=== PATIENT | female | born 1975 | race Caucasian/White ===

== ENCOUNTER → 2017-03-16 | Outpatient (CLI) | payer BC | LOC: RAD 13:26 | PROVIDERS: ATTEND Family Medicine | DX: Z12.31 Encounter for screening mammogram for malignant neoplasm of breast (principal) | CPT/HCPCS: 77067 ==

== ENCOUNTER → 2018-05-03 | Outpatient (CLI) | payer BC ==
--- NOTE | 2018-05-03 17:35 | Diagnostic Imaging Report ---
INDICATION: Routine screening. Comparison is made with prior exam from 03/16/2017. 2-D and 3-D bilateral screening mammography was performed. The current study was also evaluated with a Computer Aided Detection (CAD) system. FINDINGS: Both breasts remain heterogeneously dense, limiting the sensitivity of mammography. The parenchymal pattern is stable. No dominant mass or malignant-appearing microcalcifications are seen. The axillae are unremarkable. IMPRESSION: No mammographic features suspicious for malignancy are identified. ACR BI-RADS Category 1: Negative. Result letter will be mailed to the patient. Note: At least 10% of breast cancer is not imaged by mammography. Dictated by: Dictated on workstation # [id number]
== END ==
LOC: RAD 13:00
PROVIDERS: ATTEND Obstetrics & Gynecology
DX: Z12.31 Encounter for screening mammogram for malignant neoplasm of breast (principal)
CPT/HCPCS: 77067

== ENCOUNTER → 2019-07-09 | Outpatient (CLI) | payer BC ==
--- NOTE | 2019-07-09 09:28 | Diagnostic Imaging Report ---
INDICATION: Routine screening. COMPARISON: 05/03/2018 and 03/16/2017. TECHNIQUE: 2D and 3D bilateral screening mammography was performed with CAD. FINDINGS: Both breasts are heterogeneously dense, limiting the sensitivity of mammography. The parenchymal pattern is stable. No mass or malignant appearing microcalcifications are seen. The axillae are unremarkable. IMPRESSION: No mammographic features suspicious for malignancy are identified. ACR BI-RADS Category 1: Negative. Result letter will be mailed to the patient. Note: At least 10% of breast cancer is not imaged by mammography. Dictated by: Dictated on workstation # [id number]
== END ==
LOC: RAD 07:32
PROVIDERS: ATTEND Obstetrics & Gynecology
DX: Z12.31 Encounter for screening mammogram for malignant neoplasm of breast (principal)
CPT/HCPCS: 77067

== ENCOUNTER → 2020-08-04 | Outpatient (CLI) | payer BC ==
--- NOTE | 2020-08-04 10:21 | Diagnostic Imaging Report ---
INDICATION: Routine screening. COMPARISON: 07/09/2019 and 05/03/2018. TECHNIQUE: 2D and 3D bilateral screening mammography was performed with CAD. FINDINGS: Both breasts are heterogeneously dense, limiting the sensitivity of mammography. The parenchymal pattern is stable. No mass or malignant appearing microcalcifications are seen. The axillae are unremarkable. IMPRESSION: No mammographic features suspicious for malignancy are identified. ACR BI-RADS Category 1: Negative. Result letter will be mailed to the patient. Note: At least 10% of breast cancer is not imaged by mammography. Dictated by: Dictated on workstation # [id number]
== END ==
LOC: RAD 07:45
PROVIDERS: ATTEND Obstetrics & Gynecology
DX: Z12.31 Encounter for screening mammogram for malignant neoplasm of breast (principal)
CPT/HCPCS: 77063; 77067

== ENCOUNTER 2021-04-13 05:34 | Outpatient (CLI) | payer BC ==
[~2021-04-13] VITALS: Ht 165.1 cm; Wt 77.3 kg
[2021-04-14] MEDS ORDERED: NORG1TAB14 PO (13:35)
== END 2021-04-14 13:41 | disposition home or self-care (01) ==
LOC: PREOP 05:34
PROVIDERS: ATTEND Obstetrics & Gynecology
DX: Z01.818 Encounter for other preprocedural examination (principal)

== ENCOUNTER 2021-04-20 11:32 | Day surgery (SDC) | payer BC ==
[2021-04-20] VITALS (9 sets, daily range): BP systolic 104–142; BP diastolic 67–84
[~2021-04-20] VITALS: Ht 165 cm; Wt 77.3 kg
--- NOTE | 2021-04-20 08:30 | Progress Note-Post Operative ---
Post-Operative Progess Note Surgeon (s)/Assistant Grocery (s) Surgeon MADELINE ALVA MD Assistant Grocery: r Pre-Operative Diagnosis GUMARO-3 and pigmented L labia minora lesions Post-Operative Diagnosis Same with pathology pending Procedure & Operative Findings Date of Procedure 04/20/21 Procedure Performed/Findings TLH with bilateral salpingectomies and biopsy L labia minora Anesthesia Type GETA Estimated Blood Loss Estimated blood loss (mL): min Specimens/Packing Specimens Removed Uterus and fallopian tubes and Biopsy of left labia minora MADELINE ALVA MD Apr 20, 2021 08:30
--- NOTE | 2021-04-20 08:30 | Progress Note-Pre Operative ---
Pre-Operative Progress Note H&P Reviewed The H&P was reviewed, patient examined and no changes noted. Date Seen by Provider: Apr 20, 2021 Time Seen by Provider: 13:00 Date H&P Reviewed: Apr 20, 2021 Time H&P Reviewed: 13:00 Pre-Operative Diagnosis: GUMARO-3 MADELINE ALVA MD Apr 20, 2021 08:30
--- NOTE | 2021-04-20 08:35 | Discharge Inst-Surgical ---
Discharge Inst-Surgical Depart Medication/Instructions New, Converted or Re-Newed RX: Transmitted to Pharmacy Consults/Follow Up Patient Instructions: As directed Orders & Referrals Follow Up Appt: Return to clinic on Sunday, April 22, 2021 at 9:30 AM for staple removal Call to make follow up appt. for patient in 4 weeks. Activity: Rest for 24 hours, than as tolerated. Wound Care: May remove Band-Aid tomorrow. Replace as desired. Keep incisions clean and dry. Wash daily with soap and water. Diet: As tolerated may shower or tub bathe as desired. No driving for 24 hours, no alcoholic beverages for 24 hours, and nothing per vagina (no tampons, douching, or intercourse) for 8 weeks. Patient to return to the clinic as soon as possible for: Temperature greater than 101F, Severe Pain, Foul discharge from incision or vagina, Excessive Bleeding (more than a period). Activity Activity as Tolerated: No Diet Discharge Diet: No Restrictions MADELINE ALVA MD Apr 20, 2021 08:35
[~2021-04-20 11:32] MED LIST: DOCU-143 PO; IBUP-1780 PO; NORG1TAB14 PO; OXYC1TAB87 PO
[2021-04-20] MEDS ORDERED: LIDOCAINE/EPI 1%-1:100,000 (XYLOCAINE) 20ML ONE (11:36)
[2021-04-20] MEDS ORDERED: ONDANSETRON 4 MG/2 ML (SDV) Z0FRAN IVP PRN ×2 (11:45→15:15)
[2021-04-20] MEDS ORDERED: KETOROLAC 30 MG/ML VIAL IVP SCH (11:45)
[2021-04-20] MEDS ORDERED: ceFAZolin INJECTION 1,000 MG in WATER (STERILE) FOR INJECTION 10 ML IV ONE (11:45)
[2021-04-20] MEDS: D5 LR IV SOLUTION 1,000 ML IV SCH ×2 (11:45→17:42)
[2021-04-20] MEDS ORDERED: fentaNYL INJ 100 MCG/2 ML AMP IVP PRN (11:45)
[2021-04-20] MEDS ORDERED: oxyCODONE/APAP 5/325MG (PERCOCET 5) TABLET PO PRN (11:45)
[2021-04-20] MEDS ORDERED: IBUPROFEN 800 MG (MOTRIN) TAB PO SCH (12:00)
[2021-04-20] MEDS ORDERED: LIDOCAINE PF 2% 5 ML (XYLOCAINE) VIAL ONE (12:13)
[2021-04-20] MEDS ORDERED: ONDANSETRON 4 MG/2 ML (SDV) Z0FRAN ONE (12:13)
[2021-04-20] MEDS ORDERED: proPOfol 200 MG/20 ML (DIPRIVAN) VIAL IV ONE (12:13)
[2021-04-20] MEDS ORDERED: GLYCOPYRROLATE 0.2 MG/ML (ROBINUL) 2 ML VIAL ONE (12:13)
[2021-04-20] MEDS ORDERED: MIDAZOLAM 2 MG/2 ML (VERSED) VIAL ONE (12:13)
[2021-04-20] MEDS ORDERED: fentaNYL INJ 100 MCG/2 ML AMP ONE (12:13)
[2021-04-20] MEDS ORDERED: NEOSTIGMINE 3 MG/3 ML VIAL ONE (12:13)
[2021-04-20] MEDS ORDERED: ROCURONIUM 10 MG/ML 5 ML SYRINGE IV ONE (12:13)
[2021-04-20] MEDS: LACTATED RINGERS 1,000 ML IV PRN ×2 (12:16→14:10)
[2021-04-20 12:29] LABS: BASOPHILS # (AUTO) 0.1 10^3/uL (0.0-0.1); BASOPHILS % (AUTO) 1 % (0-10); EOSINOPHILS # (AUTO) 0.2 10^3/uL (0.0-0.3); EOSINOPHILS % (AUTO) 3 % (0-10); HEMATOCRIT 40 % (35-52); LYMPHOCYTES # (AUTO) 2.1 10^3/uL (1.0-4.0); LYMPHOCYTES % (AUTO) 34 % (12-44); MEAN CORPUSCULAR HEMOGLOBIN 31 pg (25-34); MEAN CORPUSCULAR HGB CONC 33 g/dL (32-36); MEAN CORPUSCULAR VOLUME 96 fL (80-99); MEAN PLATELET VOLUME 9.5 fL (9.0-12.2); MONOCYTES # (AUTO) 0.4 10^3/uL (0.0-1.0); MONOCYTES % (AUTO) 6 % (0-12); NEUTROPHILS # (AUTO) 3.5 10^3/uL (1.8-7.8); NEUTROPHILS % (AUTO) 56 % (42-75); PLATELET COUNT 308 10^3/uL (130-400); WHITE BLOOD COUNT 6.2 10^3/uL (4.3-11.0)
[2021-04-20] MEDS ORDERED: HYDROcodone/APAP 5 MG/325 MG (LORTAB) TAB PO ONE (13:00)
[2021-04-20] MEDS ORDERED: SEVOFLURANE (ULTANE) 15 ML INHAL SOLN ONE (14:55)
[2021-04-20] MEDS ORDERED: KETOROLAC 30 MG/ML VIAL ONE (15:06)
[2021-04-20] MEDS ORDERED: HYDROmorphone 2 MG/ML VIAL (DILAUDID) ONE (15:07)
[2021-04-20] MEDS ORDERED: fentaNYL INJ 100 MCG/2 ML AMP IVP ONE (15:15)
[2021-04-20] MEDS ORDERED: HYDROmorphone 2 MG/ML VIAL (DILAUDID) IV ONE (15:15)
--- NOTE | 2021-04-20 19:55 | OPERATIVE REPORT ---
DATE OF SERVICE: 04/20/2021 PREOPERATIVE DIAGNOSES: Severe cervical dysplasia, labial pigmented lesion. POSTOPERATIVE DIAGNOSES: Severe cervical dysplasia, labial pigmented lesion with pathology pending. OPERATIVE PROCEDURE: Biopsy of labial pigmented lesion on the left labia minora as well as total laparoscopic hysterectomy with bilateral salpingo-oophorectomy and intraoperative general surgery consult. OPERATIVE DESCRIPTION: With the patient in the supine position under satisfactory general anesthesia, she was repositioned in dorsal lithotomy position in the [facility] and then prepped and draped in the usual fashion for abdominal and vaginal surgery. The patient had darkly pigmented irregular lesions on the inferior left labia minora and on the superior and inferior left labia minora. Two public relations representative biopsies were taken from these lesions, which were probably in the range of 2.5 to 3 cm in diameter. Those biopsies were sent to pathology as a left labia minora pigmented lesion biopsy. A weighted speculum then placed in posterior fornix of vagina, cervix exposed and grasped anteriorly with single tooth tenaculum. Uterus was sounded to 9.5 cm with uterine sound. The cervix was then serially dilated with Ezra dilators to accommodate a Jazmin II manipulator, which was placed using a 6 mm x 8 cm uterine probe and a 30 mm colpotomy ring. Sutures of #1 Vicryl placed at 3 and 9 o'clock position of the cervix affix the uterus to the manipulator. The patient was brought in low dorsal lithotomy position after Medley catheter was placed in the urinary bladder and the tenaculum and speculum were removed from the vagina. A 12 mm incision was made in the patient's midline 10 cm superior to the umbilicus, Veress needle was placed through that incision, but was unsuccessful and placed in the abdominal cavity. The Veress needle was then placed through a stab wound at the superior margin of the umbilicus. Correct placement confirmed with a drop test and the abdomen was insufflated with 2.4 liters of carbon dioxide. An attempt was made to place a 12 mm port through the midline incision that was unsuccessful, so a 5 mm Optiview laparoscopic port was placed in the patient's left upper quadrant, allowing access to the peritoneal cavity and then under direct vision, ports of 12 mm and 8 mm were placed through the midline incision and into the right and left lateral 8 mm incisions as well. All 4 port sites were infiltrated with 1% lidocaine with epinephrine prior to incision. The patient was now placed in Trendelenburg allowing the bowel spill out of the pelvis. The da Soha column was advanced on the patient and docked and operative instrument placed in right and left lateral ports and I retired to the da Soha console. At the console using the vessel sealer on the right and a bipolar fenestrated grasper on the left, the pelvis was first examined. The ovaries appeared normal as did the uterus and fallopian tubes. Both ureters were seemed to peristalse and were well away from the IP ligament. Laparoscope was rotated. The appendix was identified. It was a normal vermiform appendix at the terminus of the right pericolic gutter. The laparoscopic scope was brought back to the pelvis. There were some adhesions of the sigmoid to the left pelvic brim. These were taken down bluntly and sharply and with cautery to free the sigmoid and allow full access to the left IP ligament. The right tube and ovary were then elevated using the vessel sealer, the IP ligament was clamped, cauterized and divided stepwise across the mesovarium, across the round ligament, across the broad ligament and down onto the cardinal ligament. Same procedure performed on the left, thus allowing for removal of both tubes and ovaries eventually with the uterus. Anterior lower uterine segment peritoneum was exposed and divided with bipolar fenestrated graspers just superior to her incision. Peritoneal scarring and then the bladder was carefully dissected down off the lower uterine segment, exposing the anterior wall of the vagina over the colpotomy ring. Colpotomy incision was made at 12 o'clock position onto the colpotomy ring. That incision was continued circumferentially until the entire colpotomy ring was exposed and then the uterus with tubes and ovaries still attached was extracted through the vagina. Vaginal cuff was closed with a running suture of V-Loc barbed suture starting from the right angle and continuing across the vaginal cuff. The left angle and then coming back to the midportion and reapproximated the bladder peritoneum with the last couple of stitches. Care was taken to ensure inclusion of the uterine vessel pedicles in the process of securing the angles of the vagina. The pelvis was examined for hemostasis, which was complete. Both ureters were seemed to peristalse before the procedure and throughout the procedure and again at this point. The laparoscope was rotated upright and examined. There was a small lesion on the medial portion of the liver just beside where the ligamentum teres entered under the liver. Dr. Chiang was asked to examine this area. He graciously came to the operating room and looked at it and felt like this represented a small benign liver cyst. He felt that no further workup or followup was warranted. However, if desired eventually a CT could be used to reevaluate that area and we will discuss that with the patient later. With the procedure terminated, the operative instruments were removed under direct vision as were the ports. The abdomen was evacuated of insufflating gas in the process of removing the ports. The skin incisions were closed with sharda after closing the fascia at the supraumbilical incision with [id number] suture of 2-0 Vicryl. Speculum was now replaced in the vagina. Vaginal cuff examined and found completely reapproximated and completely hemostatic. Sponge and needle counts were correct on completion of procedure. Blood loss was minimal. The patient tolerated the procedure well and was uneventfully awakened from general anesthesia and transferred to recovery room in stable condition. Job ID: [id number] DocumentID: [id number] Dictated Date: 04/20/2021 14:50:08 Telephone Operator Chief Date: 04/20/2021 19:55:27 Dictated By: MADELINE ALVA MD
[2021-04-20] MEDS: KETOROLAC 30 MG/ML VIAL IVP SCH (21:23)
[2021-04-20] MEDS: DOCUSATE SODIUM 100 MG (COLACE) CAP PO SCH (21:23)
[2021-04-21 00:43] VITALS: BP 127/78
[2021-04-21 03:16] VITALS: BP 121/80
[2021-04-21 03:36] VITALS: BP 115/61
[2021-04-21] MEDS: KETOROLAC 30 MG/ML VIAL IVP SCH (03:37)
[2021-04-21] MEDS: D5 LR IV SOLUTION 1,000 ML IV SCH (03:37)
[2021-04-21 08:00] VITALS: BP 133/62
[2021-04-21] MEDS ORDERED: IBUPROFEN 800 MG (MOTRIN) TAB PO ONE (08:21)
--- NOTE | 2021-04-21 08:30 | Progress Note ---
Standard Progress Note Progress Notes/Assess & Plan Date Seen by a Provider: Apr 21, 2021 Time Seen by a Provider: 08:29 Progress/Assessment & Plan This patient is without complaint. She is ambulating, voiding, tolerating oral intake well has good pain control. Vital Signs Date Time Temp Pulse Resp B/P (MAP) Pulse Ox O2 Delivery O2 Flow Rate FiO2 04/21/21 03:36 36.6 82 14 115/61 (79) 96 Room Air 04/21/21 00:43 37.0 92 14 127/78 (94) 97 Room Air 04/20/21 21:23 36.8 82 14 131/67 (88) 98 Room Air 04/20/21 18:00 98 Room Air 04/20/21 16:10 36.2 63 14 142/73 (96) 100 Room Air 04/20/21 15:50 Nasal Cannula 2 04/20/21 15:40 36.1 14 133/81 (98) 100 Nasal Cannula 2 04/20/21 15:30 16 135/84 (101) 100 Nasal Cannula 2 04/20/21 15:20 OxyMask 10 04/20/21 15:20 14 123/78 (93) 100 OxyMask 10 04/20/21 15:10 14 131/76 (94) 100 OxyMask 10 04/20/21 15:00 16 104/70 (81) 99 OxyMask 10 04/20/21 14:56 36.6 14 116/73 (87) 100 OxyMask 10 04/20/21 14:56 OxyMask 10 04/20/21 11:40 36.3 87 16 135/76 (95) 98 Room Air I & O 04/21/21 07:00 Intake Total 3110 ml Output Total 1950 ml Balance 1160 ml Vital signs are stable. Patient is afebrile. The abdomen is benign. The surgical incision dressings are clean and dry Extremities show no clubbing or cyanosis. There is no Homans' sign. Assessment and plan Postoperative day #1 doing well. Plan is for discharge home with follow-up in clinic Final Diagnosis GUMARO-3 MADELINE ALVA MD Apr 21, 2021 08:30
[2021-04-21] MEDS ORDERED: DOCUSATE SODIUM 100 MG (COLACE) CAP PO SCH (09:00)
[2021-04-21] MEDS: DOCUSATE SODIUM 100 MG (COLACE) CAP PO SCH (09:03)
[2021-04-21 09:15] VITALS: BP 133/62
[2021-04-21] MEDS ORDERED: IBUPROFEN 800 MG (MOTRIN) TAB PO SCH (15:00)
--- NOTE | 2021-04-22 10:10 | Anesthesia-General Post-Op ---
General Post Op Complications Complications None Follow Up Care/Instructions Patient Instructions None needed. Anesthesia/Patient Condition Patient Condition Chart reviewed, no complaints noted, no apparent adverse anesthesia problems. . CHERY,SLY Lares CRNA Apr 22, 2021 10:10
== END 2021-04-21 09:15 | disposition home or self-care (01) ==
LOC: SDC 11:32 → WS 16:24 → SDC 04-21 09:15
PROVIDERS: ATTEND Obstetrics & Gynecology
DX: N87.1 Moderate cervical dysplasia (principal); L91.8 Other hypertrophic disorders of the skin; N83.291 Other ovarian cyst, right side; N83.8 Other noninflammatory disorders of ovary, fallopian tube and broad ligament; Z79.899 Other long term (current) drug therapy; Z98.890 Other specified postprocedural states
CPT/HCPCS: 36415; 84703; 85025; 86850; 86900; 86901; 87081

== ENCOUNTER → 2022-02-08 | Outpatient (CLI) | payer BC ==
--- NOTE | 2022-02-08 10:23 | Diagnostic Imaging Report ---
INDICATION: Routine screening. Comparison is made with prior mammogram from 08/04/2020 and 07/09/2019. 2-D and 3-D bilateral screening mammography was performed with CAD. CAD is utilized. The current study was also evaluated with a Computer Aided Detection (CAD) system. Both breasts are heterogeneously dense, limiting the sensitivity of mammography. The parenchymal pattern is stable. No mass or malignant-appearing microcalcifications are seen. Axillae are unremarkable. IMPRESSION: BI-RADS Category 1 No mammographic features suspicious for malignancy are identified. ACR BI-RADS Category 1: Negative. Result letter will be mailed to the patient. Note: At least 10% of breast cancer is not imaged by mammography. Dictated by: Dictated on workstation # [id number]
== END ==
LOC: RAD 07:30
PROVIDERS: ATTEND Obstetrics & Gynecology
DX: Z12.31 Encounter for screening mammogram for malignant neoplasm of breast (principal)
CPT/HCPCS: 77063; 77067